=== PATIENT | female | born 1960 | race American Indian/Alaskan Native ===

== ENCOUNTER 2016-09-13 08:12 | Outpatient (CLI) | payer OTHER ==
--- NOTE | 2016-09-13 10:20 | Mammography Report ---
BILATERAL MAMMOGRAM: FINDINGS: The breasts are almost entirely fat (<25% glandular). No mass, distortion, suspicious calcification, or skin change is seen. Prior exams not available for comparison. CAD was utilized. IMPRESSION: Negative mammogram. There is no mammographic evidence of malignancy. RECOMMENDATION: Follow-up per ACS guidelines. BI-RADS CATEGORY: 1 = Negative ACR BI-RADS MAMMOGRAPHIC CODES: 0 = Needs additional imaging evaluation; 1 = Negative; 2 = Benign; 3 = Probably benign; 4 = Suspicious; 5 = Malignant; 6 = Known biopsy-proven malignancy COMMENT: 1. Dense breast tissue, i.e., adenosis, fibrocystic changes, etc., may obscure an underlying neoplasm. 2. Approximately 10% of cancers are not detected with mammography. 3. A negative mammography report should not delay biopsy if a clinically suspicious mass is present. COMMENT: Patient follow-up letters are generated in [email or web address].
== END 2016-09-13 08:13 | disposition home or self-care (01) ==
LOC: SPVWC 08:12
PROVIDERS: ATTEND Nurse Practitioner Family
DX: Z12.31 Encounter for screening mammogram for malignant neoplasm of breast (principal)
CPT/HCPCS: 77067; G0202

== ENCOUNTER 2017-01-13 07:28 | Outpatient (CLI) | payer OTHER ==
--- NOTE | 2017-01-13 09:56 | Ultrasound Report ---
Abdominal ultrasound: Pain. Transabdominal imaging demonstrates an unremarkable spleen, pancreas and gallbladder. The CBD diameter is 4.7 mm. The liver is slightly echogenic with no focal abnormality. The right renal length is 11.7 cm and the left is 9.6 cm. Both kidneys are echogenically unremarkable. The transverse diameter of the proximal abdominal aorta is 2 cm. Impressions: Suspicion of mild hepatic steatosis. Pelvic ultrasound: Pelvic and perineal pain. The patient had a hysterectomy in 1989. Transabdominal imaging showed no evidence of pelvic mass or fluid. Neither ovary is identified. Impression: No pathology identified.
== END 2017-01-13 07:29 | disposition home or self-care (01) ==
LOC: US 07:28
PROVIDERS: ATTEND Internal Medicine
DX: R10.2 Pelvic and perineal pain (principal); Z90.710 Acquired absence of both cervix and uterus
CPT/HCPCS: 76700; 76856